=== PATIENT | male | born 1975 | race Caucasian/White ===

== ENCOUNTER 2023-07-20 15:33 | Emergency (ER) | payer OTHER, SELFPAY ==
[2023-07-20] VITALS (31 sets, daily range): BP systolic 143–212; BP diastolic 99–146; PULSE 50–115; RESP 11–25; TEMP 36.4; O2SAT 87–100; BMI 24.2
--- NOTE | 2023-07-20 15:42 | ECG_ITS ---
The [facility] Test Date: 2023-07-20 Pat Name: LORRI HA Department: Room: - Gender: Male Move Coordinator: : 1975 Requested By: Order Number: [id number] Reading MD: URIAH CABEZAS Measurements Intervals [place] Rate: 55 P: 71 DE: 134 QRS: 63 QRSD: 88 T: 64 QT: 428 QTc: 417 Interpretive Statements 1100 Sinus bradycardia 1102 Sinus arrhythmia 9110 normal ECG No previous ECG available for comparison Electronically Signed On 07-20-2023 22:23:31 EDT by URIAH CABEZAS
--- NOTE | 2023-07-20 15:43 | CT_ITS ---
The [address] [address] Patient Name: LORRI HA MRN: [id number] date: 1975 Sex: M Assigned Patient Location: ED.MAIN Current Patient Location: Accession/Order Number: [id number] Exam Date: 07/20/2023 16:45 Report Date: 07/20/2023 17:37 At the request of: HERIBERTO MORA Procedure: CT head/brain wo con CT head without contrast CLINICAL: Fall. TECHNIQUE: Contiguous transaxial images were obtained from skull base to vertex without administration of intravenous contrast. Dose reduction: mA and/or kV are were adjusted by automated exposure control software based upon patients height and weight. FINDINGS: Comparison made to head CT dated 09/05/2019. There is no focal scalp soft tissue swelling or acute calvarial fracture. The visualized globes and orbits are grossly normal. There is minimal paranasal sinus also thickening with tiny sphenoid sinus air-fluid level. Bilateral mastoid air cells are clear. The ventricles are normal and symmetric bilaterally. There is mild sulcal prominence. There is no intraparenchymal hemorrhage, mass lesion, or acute large vessel ischemia by noncontrast CT. There is beam hardening artifact from the calvarium. There is either interval increase in subarachnoid spaces since the previous examination, particularly at the frontal regions, or there are tiny chronic extra-axial fluid collections. The former is favored as there appear to be vessels traversing these regions of mild extra-axial prominence. CT/CT head/brain wo con IMPRESSION: 1. No acute intracranial hemorrhage or acute large territory ischemia by noncontrast CT. 2. Mild sulcal prominence. There is either mild interval increase in subarachnoid spaces since the previous CT examination from 09/05/2019 or there are tiny chronic extra-axial fluid collections. The former is favored as there appear to be vessels traversing these regions of mild extra-axial prominence. If clinically indicated, further evaluation with dedicated MRI may be performed for complete evaluation. MRI may also be utilized to exclude the possibility of early ischemia/infarct likely indicated. If the patient has a focal neurologic deficit or there is clinical suspicion for acute cerebrovascular accident, brain MRI would be recommended for further evaluation. Electronically authenticated by: PHILIPPE MARY Date: 07/20/2023 17:37
--- NOTE | 2023-07-20 15:43 | XR_ITS ---
The [address] [address] Patient Name: LORRI HA MRN: [id number] date: 1975 Sex: M Assigned Patient Location: ED.MAIN Current Patient Location: ER Accession/Order Number: [id number] Exam Date: 07/20/2023 16:45 Report Date: 07/20/2023 18:13 At the request of: HERIBERTO OMRA Procedure: XR chest 1V EXAM: XR chest 1V HISTORY: fall COMPARISON: 09/05/2019 TECHNIQUE: Chest X-ray AP, 1 view FINDINGS: Support devices: None. Lungs/pleura: No consolidation, effusion, or pneumothorax. Heart and mediastinum: Normal contours. Bones: No acute abnormality identified. XR/XR chest 1V Impression: No radiographic evidence of acute cardiopulmonary process. Electronically authenticated by: HANSA RUTLEDGE Date: 07/20/2023 18:13
--- NOTE | 2023-07-20 15:45 | CT_ITS ---
The [address] [address] Patient Name: LORRI HA MRN: [id number] date: 1975 Sex: M Assigned Patient Location: ED.MAIN Current Patient Location: ER Accession/Order Number: [id number] Exam Date: 07/20/2023 16:45 Report Date: 07/20/2023 17:31 At the request of: HERIBERTO MORA Procedure: CT cervical spine wo con CT cervical spine CLINICAL: Fall. TECHNIQUE: Contiguous transaxial images obtained from skullbase through cervical spine without administration of intravenous contrast. Coronal and sagittal reformations were obtained. Dose reduction: mA and/or kV are were adjusted by automated exposure control software based upon patients height and weight. FINDINGS: There is straightening of the cervical spine with loss of normal cervical lordosis. There is no prevertebral soft tissue swelling or acute cervical spine fracture. There is minimal degenerative disc disease of the cervical spine with minimal ventral spurring. There is no cervical listhesis. The osseous central canal and osseous neural foramina are patent. There is minimal atlantodental articulation osteoarthritis. CT/CT cervical spine wo con IMPRESSION: 1. No acute cervical spine fracture. Electronically authenticated by: PHILIPPE MARY Date: 07/20/2023 17:31
--- NOTE | 2023-07-20 15:46 | XR_ITS ---
The [address] [address] Patient Name: LORRI HA MRN: [id number] date: 1975 Sex: M Assigned Patient Location: ED.MAIN Current Patient Location: ER Accession/Order Number: [id number] Exam Date: 07/20/2023 16:45 Report Date: 07/20/2023 17:49 At the request of: HERIBERTO MORA Procedure: XR shoulder RT min 2V EXAM: XR shoulder RT min 2V TECHNIQUE: Internal rotation and scapular Y views right shoulder HISTORY: pain COMPARISON: None. FINDINGS: No acute fracture or dislocation. Soft tissues are unremarkable. No arthritic changes. XR/XR shoulder RT min 2V IMPRESSION: No fracture or dislocation. Electronically authenticated by: TALON TOWNSEND Date: 07/20/2023 17:49
[2023-07-20 15:48] LABS: Glucometer 85 mg/dL (74-106)
[2023-07-20 15:56] LABS: Basophils Absolute Auto 0.1 10^3/uL (0.0-0.1); Basophils Percent Auto 0.6 % (0.2-2.0); Eosinophils Absolute Auto 0.1 10^3/uL (0.0-0.7); Eosinophils Percent Auto 1.1 % (0.9-7.0); Hematocrit 56.6 % (42.0-54.0); Hemoglobin 18.2 g/dL (14.0-18.0); Immature Granulocytes Abs Auto 0.03 10^3/uL (0.00-0.03); Immature Granulocytes Pct Auto 0.3 % (0.0-0.5); Lymphocytes Absolute Auto 2.1 10^3/uL (1.2-3.8); Lymphocytes Percent Auto 24.4 % (20.5-60.0); Mean Corpuscular HGB Conc 32.2 g/dL (29.9-35.2); Mean Corpuscular Hemoglobin 32.7 pg (25.9-34.0); Mean Corpuscular Volume 101.6 fL (80.0-94.0); Mean Platelet Volume 10.3 fL (9.5-13.5); Monocytes Absolute Auto 0.8 10^3/uL (0.3-0.8); Monocytes Percent Auto 8.8 % (1.7-12.0); Neutrophils Absolute Auto 5.6 10^3/uL (1.4-6.5); Neutrophils Percent Auto 64.8 % (43.0-75.0); Platelet Count 236 10^3/uL (150-450); Red Blood Count 5.57 10^6/uL (4.70-6.10); Red Cell Distribution Width 13.9 % (11.0-15.0); White Blood Count 8.7 10^3/uL (4.0-11.0)
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
[2023-07-20 16:13] LABS: Alanine Aminotransferase 55 U/L (16-63); Albumin Globulin Ratio 0.7; Albumin Level 3.3 g/dL (3.4-5.0); Alkaline Phosphatase 50 U/L (46-116); Anion Gap 16.2; Aspartate Amino Transferase 39 U/L (15-37); BUN Creatinine Ratio 19.2; Bilirubin Total 0.6 mg/dL (0.2-1.0); Calcium 9.2 mg/dL (8.5-10.1); Carbon Dioxide 24.4 mmol/L (21.0-32.0); Chloride 109 mmol/L (98-107); Estimated GFR (African America 44 (>=60); Estimated GFR (Non-African Ame 36 (>=60); Ethanol <3 mg/dL; Globulin 4.6 g/dL; Glucose 77 mg/dL (74-106); Magnesium 2.3 mg/dL (1.8-2.4); Potassium 4.6 mmol/L (3.5-5.1); Sodium 145 mmol/L (136-145); Total Protein 7.9 g/dL (6.4-8.2)
[2023-07-20 16:19] LABS: Ammonia 34 umol/L (11-32)
[2023-07-20] MEDS: LORAZEPAM 2 MG/ML 1 ML VIAL IM (16:28)
[2023-07-20] MEDS: DROPERIDOL 5 MG/2 ML 2 EACH INJ (16:28)
[2023-07-20] MEDS: DIPHENHYDRAMINE HCL 50 MG/ML (1ML) VIAL IM (16:28)
[2023-07-20 16:42] LABS: Creatine Kinase 100 U/L (39-308); Troponin I High Sensitivity 7.4 pg/mL (4.0-76.1)
[2023-07-20] MEDS: 0.9 % SODIUM CHLORIDE 1,000 ML 1000 ML IV (16:43)
[2023-07-20] MEDS: KETAMINE HCL 500 MG/10 ML VIAL 140 MG IV (16:43)
[2023-07-20 17:34] LABS: Bilirubin Urine NEGATIVE (NEGATIVE); Blood Urine LARGE (NEGATIVE); Clarity Urine CLEAR (CLEAR); Color Urine LT. YELLOW (YELLOW); Glucose Urine UA NEGATIVE (NEGATIVE); Ketones Urine NEGATIVE (NEGATIVE); Leukocyte Esterase Urine NEGATIVE (NEGATIVE); Nitrite Urine NEGATIVE (NEGATIVE); Protein Urine 100 mg/dL (NEG/TRACE); Urobilinogen Urine 0.2 EU/dL (0.2-1.0); pH Urine 5.5 (5.0-9.0)
[2023-07-20 17:39] LABS: Amphetamine Screen Urine NEGATIVE (NEGATIVE); Barbiturates Screen Urine NEGATIVE (NEGATIVE); Benzodiazepines Screen Urine NEGATIVE (NEGATIVE); Buprenorphine Screen Urine NEGATIVE (NEGATIVE); Cannabinoid Screen Urine POSITIVE (NEGATIVE); Cocaine Screen Urine NEGATIVE (NEGATIVE); Methadone Screen Urine NEGATIVE (NEGATIVE); Methamphetamines Screen Urine NEGATIVE (NEGATIVE); Opiate Screen Urine NEGATIVE (NEGATIVE); Oxycodone Screen Urine NEGATIVE (NEGATIVE); Phencyclidine Screen Urine NEGATIVE (NEGATIVE); Tricyclic Antidepressant Urine NEGATIVE (NEGATIVE)
[2023-07-20] MEDS: ONDANSETRON PF 4 MG/2 ML VIAL IV (17:41)
[2023-07-20 17:42] LABS: Bacteria Urine TRACE #/HPF (NONE SEEN); Cast Seen? NONE SEEN #/LPF (NONE SEEN); Crystals Seen? None Seen #/HPF (None Seen); Mucus Urine NONE SEEN (NONE SEEN); Squamous Epithelial Cell Urine RARE #/LPF (NONE/RARE); WBC Urine 0-2 #/HPF (NONE SEEN)
[2023-07-22 15:09] LABS: Osmolality, Urine 478 mOsmol/kg (.)
== END 2023-07-20 22:30 ==
PROVIDERS: Emergency Medicine; Emergency Provider Internal Medicine
DX: R51.9 Headache, unspecified (principal); M54.2 Cervicalgia; R41.82 Altered mental status, unspecified; R45.1 Restlessness and agitation; R45.6 Violent behavior; Z91.81 History of falling; F12.90 Cannabis use, unspecified, uncomplicated; F17.210 Nicotine dependence, cigarettes, uncomplicated
CPT/HCPCS: 36415; 51702; 70450; 71045; 72125; 73030; 80053; 80307; 80320; 81001; 82140; 82550; 83690; 83735; 83935; 84484; 85025; 93005; 96372; 96374; 96375; 99285